=== PATIENT | female | born 1995 | race African-American/Black ===

== ENCOUNTER 2019-06-11 20:59 | Emergency (ER) | payer MEDICAID ==
[~2019-06-11] VITALS: Ht 170.2 cm; Wt 90.3 kg
[~2019-06-11 20:59] MED LIST: PREN-145 OR
[2019-06-11 21:21] VITALS: BP 130/66
[2019-06-12] MEDS ORDERED: LIDOCAINE 1% HCL (LOCAL ANESTH.) INJ 20ML MDV IJ ONE (01:15)
[2019-06-12] MEDS ORDERED: cefTRIAXone SOD 1,000 MG VL IM ONE (01:15)
[2019-06-12] MEDS ORDERED: IBUPROFEN 800 MG TAB PO ONE (02:00)
== END 2019-06-12 03:05 | disposition home or self-care (01) ==
LOC: ER 21:01
DX: L03.011 Cellulitis of right finger (principal)
CPT/HCPCS: 96372; 99283; J0696

== ENCOUNTER 2022-04-09 05:39 | Emergency (ER) | payer MEDICAID ==
[~2022-04-09] VITALS: Ht 170.2 cm; Wt 85.9 kg
[2022-04-09] MEDS ORDERED: SODIUM CHLORIDE 0.9% 500 ML IVB ONE (07:15)
[2022-04-09] MEDS ORDERED: SODIUM CHLORIDE 0.9% 1,000 ML IV ONE (07:15)
[2022-04-09 07:22] LABS: Basophils # (auto) 0 10 ^3/uL (0-0.2); Basophils % (auto) 0.7 % (0.0-2.0); Eosinophils # (auto) 0.1 10 ^3/uL (0-0.8); Monocytes # (auto) 0.3 10 ^3/uL (0-1.3); Nucleated Red Blood Cells % 0.1 %; White Blood Cell 3.9 10^3/uL (4.4-10.8)
[2022-04-09 07:24] LABS: Eosinophils % (auto) 2.9 % (0.0-7.0); Hematocrit 37.8 % (36.0-46.0); Lymphocytes # (auto) 1.2 10 ^3/uL (0.4-5.4); Lymphocytes % (auto) 31.7 % (10.0-50.0); Mean Corpuscular Hemoglobin 25.7 pg (28.0-32.0); Mean Corpuscular Hgb Conc. 31.8 g/dL (32.0-36.0); Mean Corpuscular Volume 80.8 fL (80.0-100.0); Monocytes % (auto) 6.5 % (0.0-12.0); Neutrophils # (auto) 2.3 10 ^3/uL (1.6-8.6); Neutrophils % (auto) 58.2 % (37.0-80.0); Red Blood Cells 4.67 10^6/uL (4.0-5.20); Red Cell Distribution Width 16.5 % (11.8-14.3)
[2022-04-09 07:42] LABS: BUN/Creatinine Ratio 5.8; Calcium 8.3 mg/dL (8.5-10.1); Potassium 3.8 mmol/L (3.5-5.1)
[2022-04-09 08:39] LABS: Urine Bacteria FEW /hpf (None Seen); Urine Blood Negative /uL (Negative); Urine Specific Gravity 1.007 (1.001-1.035); Urine WBC 1 /hpf (0 - 5)
[2022-04-09] MEDS ORDERED: METOCLOPRAMIDE HCL 5MG/ml INJ 2ml VIAL IV ONE (08:45)
[2022-04-09] MEDS ORDERED: KETOROLAC TROMETH 30 MG/ML 1ML VIAL IV ONE (08:45)
[2022-04-09] MEDS ORDERED: ACET30TA15 PO (08:53)
[2022-04-09] MEDS ORDERED: NAPR375T27 PO (08:53)
[2022-04-09 10:10] VITALS: BP 114/56
== END 2022-04-09 10:13 | disposition home or self-care (01) ==
LOC: ER 05:39
DX: O26.891 Other specified pregnancy related conditions, first trimester (principal); N20.1 Calculus of ureter; Z3A.01 Less than 8 weeks gestation of pregnancy; Z88.1 Allergy status to other antibiotic agents
CPT/HCPCS: 36415; 76775; 80048; 81001; 84702; 85025; 96361; 96374; 99284; J1885; J7030; J7040

== ENCOUNTER 2022-04-12 07:36 | Emergency (ER) | payer MEDICAID ==
[~2022-04-12] VITALS: Ht 170.2 cm; Wt 84.0 kg
[~2022-04-12 07:36] MED LIST changes: +ACET30TA15 PO; +NAPR375T27 PO
[2022-04-12 08:25] LABS: Basophils # (auto) 0 10 ^3/uL (0-0.2); Basophils % (auto) 0.8 % (0.0-2.0); Eosinophils # (auto) 0.1 10 ^3/uL (0-0.8); Red Blood Cells 4.59 10^6/uL (4.0-5.20)
[2022-04-12 08:27] LABS: Eosinophils % (auto) 3.3 % (0.0-7.0); Hematocrit 36.9 % (36.0-46.0); Hemoglobin 11.8 g/dL (12.2-16.2); Lymphocytes % (auto) 27.9 % (10.0-50.0); Mean Corpuscular Hemoglobin 25.7 pg (28.0-32.0); Mean Corpuscular Hgb Conc. 31.9 g/dL (32.0-36.0); Mean Corpuscular Volume 80.4 fL (80.0-100.0); Monocytes # (auto) 0.3 10 ^3/uL (0-1.3); Monocytes % (auto) 8.3 % (0.0-12.0); Neutrophils # (auto) 2.2 10 ^3/uL (1.6-8.6); Neutrophils % (auto) 59.7 % (37.0-80.0); Nucleated Red Blood Cells % 0.1 %; White Blood Cell 3.7 10^3/uL (4.4-10.8)
[2022-04-12 08:40] LABS: Albumin 3.7 g/dL (3.4-5.0); Calcium 8.3 mg/dL (8.5-10.1); Potassium 4.2 mmol/L (3.5-5.1)
[2022-04-12 08:43] LABS: Bilirubin, Total 0.3 mg/dL (0.2-1.0); Total Protein 7.2 g/dL (6.4-8.2)
[2022-04-12 10:19] LABS: Urine WBC None Seen /hpf (0 - 5)
[2022-04-12 10:39] LABS: Urine Bacteria NONE SEEN /hpf (None Seen); Urine Blood 2+ /uL (Negative); Urine Specific Gravity 1.017 (1.001-1.035)
[2022-04-12 11:51] VITALS: BP 120/70
== END 2022-04-12 11:56 | disposition home or self-care (01) ==
LOC: ER 07:36
DX: O03.9 Complete or unspecified spontaneous abortion without complication (principal); Z79.899 Other long term (current) drug therapy; Z88.1 Allergy status to other antibiotic agents; Z88.0 Allergy status to penicillin; Z3A.00 Weeks of gestation of pregnancy not specified
CPT/HCPCS: 36415; 76801; 76817; 80053; 81001; 84702; 85025